=== PATIENT | male | born 1975 | race Caucasian/White ===

== ENCOUNTER 2019-04-14 14:41 | Inpatient (IN) ==
--- NOTE | 2019-04-14 17:15 | History & Physical Report ---
*Admission Date: 04/14/19 *Chief complaint: RLQ pain *History of present illness: Mr. Rose is a relatively healthy 43-year-old male who was seen in the office to [facility] today with complaints of right lower quadrant pain and fever. Upon examination in the office he was felt to have a possible appendicitis. His white blood cell count was elevated at 14.5 and he had ran a fever of over 100 yesterday evening. He was sent down for a CT scan and the CT showed sigmoid diverticulitis with a contained perforation. Radiology felt the tip of the appendix was also distended and the patient could have appendicitis. He was directly admitted for pain control, IV antibiotics, and a surgical consu lt. [facility] History I have reviewed the patient's past medical history: Yes Medical History: Denies:: Diabetes Mellitus Type 2, Hyperlipidemia, Hypertension *Have you ever received a pneumonia vaccine?: No *Have you received a flu vaccine this season?: No Other Surgeries: Yes: Other (Vasectomy) - *Social History Smoking Status: Former smoker Alcohol Intake: never *Travel in the last 8 weeks: None Family Hx:: Cancer, Diabetes, Hypertension, Other (RA, Osteoporosis) Review of Systems - Constitutional Reports chills, Reports fever(s), Reports weakness - Eyes Denies blurry vision, Denies double vision - ENT Denies nasal congestion, Denies sore throat - *Cardiovascular Denies chest pain, Denies shortness of breath - *Respiratory Denies cough, Denies shortness of breath, Denies wheezing - *Gastrointestinal Reports abdominal pain (RLQ), Denies loose stools, Denies nausea, Denies vomiting - *Genitourinary Denies difficulty urinating, Denies painful urination - *Musculoskeletal Denies joint pain, Denies back pain - *Neurologic Denies headache(s), Denies dizziness, Denies weakness Meds Home Medications Medication Instructions Recorded Confirmed Type Multivitamin [Multi-Vitamin Plain] 1 tab PO DAILY 04/14/19 04/28/19 History Potassium 99 mg PO DAILY 04/14/19 04/28/19 History [place]-3/Dha/Epa/Fish Oil [Fish Oil 1 each PO DAILY 04/15/19 04/28/19 History 500 mg Softgel] Amoxicillin/Potassium Clav 500 mg PO TID #30 tab 04/16/19 04/28/19 Rx [Augmentin 500mg tab] peg 3350-electrolytes 236 240 ml PO Q10M #4000 ml 04/28/19 04/28/19 Rx gram-22.74 gram-6.74 gram-5.86 gram solution Allergies Allergy/AdvReac Type Severity Reaction Status Date / Time No Known Allergies Allergy Unverified 04/28/19 10:00 Exam - Constitutional Comments: Does not appear to feel well - *Routine HEENT Exam Head: Present: normocephalic Eye: Present: EOMI, PERRL ENT: Present: mucous membranes dry - *Routine Neck Exam Present: supple. Absent: lymphadenopathy - *Routine Respiratory Exam Present: CTA bilaterally - *Routine Cardiovascular Exam Present: RRR - *Routine Abdominal Exam Present: soft, normoactive bowel sounds, tenderness (RLQ and some suprapubic tenderness), rebound, guarding - *Routine Extremities Exam Absent: cyanosis, clubbing, edema - *Routine Skin Exam Present: pallor. Absent: rash - *Routine Neurological Exam Present: alert, oriented X3 H&P: Result - Impressions CT abd/pelvic 1. Acute sigmoid diverticulitis with stranding of the pericolic fat. There is what appears to represent a small contained perforation along the medial aspect of the sigmoid colon. No abscess or distant free air is evident. 2. Diverticulosis of the descending and sigmoid colon 3. There is mild focal soft tissue thickening at the tip of the appendix. This is of questionable clinical significance and may be related to some mild dilatation of the tip of the appendix or even an adjacent lymph node. Suggest follow-up to confirm stability. Cannot exclude the possibility of appendicitis at the tip of the appendix by CT. Therefore, correlation with clinical parameters are needed. Assessment and Plan (1) Perforation of sigmoid colon due to diverticulitis Status: Acute Category: Medical Code(s): K57.20 - Diverticulitis of large intestine with perforation and abscess without bleeding (2) Leukocytosis Status: Acute Category: Medical Code(s): D72.829 - Elevated white blood cell count, unspecified - Assessment and plan all Dx Assessment and Plan for all problems:: We will start the patient on IV Invanz as well as IV morphine and IV fluids. Will consult surgery for diverticulitis with perforation and a possible appendicitis.
--- NOTE | 2019-04-14 17:48 | Consult Report ---
*Admission Date: 04/14/19 *Reason for consult:: Diverticulitis *History of present illness: This is a 43-year-old gentleman seen in consultation from Dr. Munoz for evaluation regarding diverticulitis with focal/contained perforation. Please see truncated version of HPI from admission H&P forwarded below. Forwarded from admission H&P (truncated): ...relatively healthy 43-year-old male who was seen in the office to [facility] today with complaints of right lower quadrant pain and fever...he was felt to have a possible appendicitis...white blood cell count was...14.5...ran a fever of over 100 yesterday evening...CT showed sigmoid diverticulitis with a contained perforation...tip of the appendix was also distended.... He was directly admitted for pain control, IV antibiotics, and a surgical consult. Currently he states that his pain has essentially been mid lower abdomen/suprapubic. Review of Systems - Constitutional Denies chills - *Cardiovascular Denies chest pain - *Gastrointestinal Reports abdominal pain - *Neurologic Denies headache(s), Denies dizziness, Denies weakness - Psychiatric Denies anxiety - Hematologic/Lymphatic Denies easy bruising [facility] History Medical History: Denies:: Diabetes Mellitus Type 1, Diabetes Mellitus Type 2, Hyperlipidemia, Hypertension *Have you ever received a pneumonia vaccine?: No *Have you received a flu vaccine this season?: No Other Surgeries: Yes: Other (Vasectomy) - *Social History Educational Level: Attended College Smoking Status: Former smoker Smoking End Date: 05/04/2013 Alcohol Intake: never *Occupational Status:: employed Housing: house Household Members: spouse, children *Travel in the last 8 weeks: None Family Hx:: Cancer, Diabetes, Hypertension, Other Meds Home Medications Medication Instructions Recorded Confirmed Type Multivitamin [Multi-Vitamin Plain] 1 tab PO DAILY 04/14/19 04/14/19 History [place]-3 Fatty Acids [Fish Oil] 300 mg PO DAILY 04/14/19 04/14/19 History RX: Potassium 99 mg PO DAILY 04/14/19 04/14/19 History Allergies Allergy/AdvReac Type Severity Reaction Status Date / Time No Known Allergies Allergy Unverified 04/14/19 17:17 Exam Vital signs and Labs for Last 24 Hours: Temp Pulse Resp BP Pulse Ox 98.1 F 114 H 18 168/111 H 97 04/14/19 17:22 04/14/19 17:22 04/14/19 17:22 04/14/19 17:22 04/14/19 17:22 I & O for Last 24 hours: Intake & Output 04/12/19 04/13/19 04/14/19 04/15/19 11:59 11:59 11:59 11:59 Weight 232 lb 8 oz - Constitutional no acute distress - *Routine Respiratory Exam Absent: respiratory distress - *Routine Cardiovascular Exam Present: tachycardia - *Routine Abdominal Exam Present: tenderness. Absent: distended Comments: lower abdomen bilaterally Results - Imaging CT scan - abdomen: report reviewed, image reviewed CT scan - pelvis: report reviewed, image reviewed Assessment and Plan (1) Perforation of sigmoid colon due to diverticulitis Current visit: Yes Status: Acute Category: Medical Code(s): K57.20 - Diverticulitis of large intestine with perforation and abscess without bleeding IV abx as per PCP Serial exams Colonoscopy in near future (likely in ~6-8 weeks) No need for emergent surgical intervention; however, this does represent a somewhat complicated subset of diverticulitis and discussion with regard to possible elective resection will be ongoing (assuming he does not decompensate clinically and require more urgent/emergent intervention). (2) Leukocytosis Current visit: Yes Status: Acute Category: Medical Code(s): D72.829 - Elevated white blood cell count, unspecified
[2019-04-14 17:55] LABS: Albumin/Globulin Ratio 1.1 (1.1-1.8); Anion Gap 14.9 mEq/L (5-15); Bilirubin,Total 1.5 mg/dL (0.2-1.0); Calcium 8.8 mg/dL (8.5-10.1); Globulin 3.8 gm/dl (1.3-3.2); Total Protein,Serum 7.8 gm/dL (6.4-8.2)
[2019-04-14 18:09] LABS: Basophils % 0.1 % (0.1-2.0); Eosinophils # 0.1 K/mm3 (0.0-0.4); Eosinophils % 0.4 % (0.1-12.0); Hematocrit 45.4 % (42.0-52.0); Hemoglobin 15.1 g/dL (14.1-18.0); Lymphocytes # 1.6 K/mm3 (0.7-4.5); Lymphocytes % 11.5 % (10-50); Mean Corpuscular HGB Conc 33.2 g/dL (31.8-35.4); Mean Corpuscular Volume 87.3 fl (80-94); Mean Platelet Volume 7.3 fl (7.4-10.4); Monocytes # 0.8 K/mm3 (0.1-1.0); Monocytes % 5.5 % (1.7-9.3); Neutrophils # 11.3 K/mm3 (1.8-7.8); Neutrophils % 82.5 % (37.0-80.0); Platelet Count 212 K/mm3 (142-424); Red Cell Distribution Width 12.7 % (11.5-17.5); White Blood Count 13.8 K/mm3 (4.8-10.8)
--- NOTE | 2019-04-15 06:38 | Progress Note ---
Subjective Narrative: resting Exam Vital signs and Labs for Last 24 Hours: Temp Pulse Resp BP Pulse Ox 98.3 F 97 H 17 132/92 H 96 04/15/19 04:00 04/15/19 04:00 04/15/19 04:00 04/15/19 04:00 04/15/19 04:00 Laboratory Results - last 24 hr 04/14/19 17:25: WBC 13.8 H, RBC 5.20, Hgb 15.1, Hct 45.4, MCV 87.3, MCH 29.0, MCHC 33.2, RDW 12.7, Plt Count 212, MPV 7.3 L, Neut % (Auto) 82.5 H, Lymph % (Auto) 11.5, [place] % (Auto) 5.5, Eos % (Auto) 0.4, Baso % (Auto) 0.1, Neut # (Auto) 11.3 H, Lymph # (Auto) 1.6, [place] # (Auto) 0.8, Eos # (Auto) 0.1, Baso # (Auto) 0.0 04/14/19 17:25: Sodium 132 L, Potassium 3.9, Chloride 95 L, Carbon Dioxide 26, Anion Gap 14.9, BUN 8, Creatinine 1.04, Estimated Creat Clear 134, Estimated GFR 77, Est GFR ( Amer) 93, Glucose 103, Calcium 8.8, Total Bilirubin 1.5 H, AST 12 L, ALT 27, Alkaline Phosphatase 99, Total Protein 7.8, Albumin 4.0, Globulin 3.8 H, Albumin/Globulin Ratio 1.1 04/14/19 17:50: Lactate 0.8 I & O for Last 24 hours: Intake & Output 04/12/19 04/13/19 04/14/19 04/15/19 11:59 11:59 11:59 11:59 Intake Total 1486 / 1486 Balance 1486 / 1486 Weight 226 lb 4 oz - Constitutional no acute distress - *Routine Respiratory Exam Absent: respiratory distress - *Routine Cardiovascular Exam Present: RRR - *Routine Abdominal Exam Comments: exam deferred (patient currently asleep) Progress Note: A&P (1) Perforation of sigmoid colon due to diverticulitis Status: Acute Assessment and plan: Continue antibiotics Serial abdominal exams Current Visit: Yes (2) Leukocytosis Status: Acute Current Visit: Yes
--- NOTE | 2019-04-15 07:19 | Pharmacy Consult Notes ---
[facility] Pharmacy VTE Monitoring - Patient Demographics Admission date: 04/14/19 Report Date: 04/15/19 Time: 07:18 Allergies/Adverse Reactions: Patient Allergies No Known Allergies Allergy (Unverified 04/14/19 17:17) Height: 1.85 m Weight: 102.625 kg Patient Problems: Current Active Problems Perforation of sigmoid colon due to diverticulitis (Acute) Leukocytosis (Acute) - VTE Risk Labs: VTE Related Lab Results Hgb 15.1 g/dL (14.1-18.0) 04/14/19 17:25 Hct 45.4 % (42.0-52.0) 04/14/19 17:25 Plt Count 212 K/mm3 (142-424) 04/14/19 17:25 BUN 8 mg/dL (7-18) 04/14/19 17:25 Creatinine 1.04 mg/dL (0.70-1.30) 04/14/19 17:25 Estimated Creat Clear 134 mL/min (50-200) 04/14/19 17:25 Was VTE Risk Assessment Performed: Yes VTE Score: 1 VTE Risk Level: Very Low Risk Clinical Trial Participant: No - Prophylaxis VTE Prophylaxis Ordered?: Yes Types of VTE Prophylaxis: TEDS Knee High
--- NOTE | 2019-04-15 08:22 | Progress Note ---
<Liana Palma - Last Filed: 04/15/19 08:19> Internal Medicine - PN: Subj *Date: 04/15/19 *Time: 08:19 Interval history: Patient states he feels a little bit better this morning. He still has some lower abdominal pain. He states he is hungry and would like to try diet. Dr. Matos has seen the patient and plans no surgical intervention at this time. Exam Vital signs and Labs for Last 24 Hours: Temp Pulse Resp BP Pulse Ox 98.2 F 93 H 20 146/89 H 94 L 04/15/19 07:59 04/15/19 07:59 04/15/19 07:59 04/15/19 07:59 04/15/19 07:59 Laboratory Results - last 24 hr 04/14/19 17:25: WBC 13.8 H, RBC 5.20, Hgb 15.1, Hct 45.4, MCV 87.3, MCH 29.0, MCHC 33.2, RDW 12.7, Plt Count 212, MPV 7.3 L, Neut % (Auto) 82.5 H, Lymph % (Auto) 11.5, [place] % (Auto) 5.5, Eos % (Auto) 0.4, Baso % (Auto) 0.1, Neut # (Auto) 11.3 H, Lymph # (Auto) 1.6, [place] # (Auto) 0.8, Eos # (Auto) 0.1, Baso # (Auto) 0.0 04/14/19 17:25: Sodium 132 L, Potassium 3.9, Chloride 95 L, Carbon Dioxide 26, Anion Gap 14.9, BUN 8, Creatinine 1.04, Estimated Creat Clear 134, Estimated GFR 77, Est GFR ( Amer) 93, Glucose 103, Calcium 8.8, Total Bilirubin 1.5 H, AST 12 L, ALT 27, Alkaline Phosphatase 99, Total Protein 7.8, Albumin 4.0, Globulin 3.8 H, Albumin/Globulin Ratio 1.1 04/14/19 17:50: Lactate 0.8 I & O for Last 24 hours: Intake & Output 04/12/19 04/13/19 04/14/19 04/15/19 11:59 11:59 11:59 11:59 Intake Total 1486 / 1486 Balance 1486 / 1486 Weight 226 lb 4 oz - Constitutional no acute distress - *Routine Respiratory Exam Present: CTA bilaterally - *Routine Cardiovascular Exam Present: RRR - *Routine Abdominal Exam Present: soft, normoactive bowel sounds, tenderness (RLQ, LLQ) - *Routine Extremities Exam Absent: cyanosis, clubbing, edema - *Routine Skin Exam Present: warm. Absent: rash - *Routine Neurological Exam Present: alert, oriented X3 Assessment and Plan (1) Perforation of sigmoid colon due to diverticulitis Current visit: Yes Status: Acute Category: Medical Code(s): K57.20 - Diverticulitis of large intestine with perforation and abscess without bleeding (2) Leukocytosis Current visit: Yes Status: Acute Category: Medical Code(s): D72.829 - Elevated white blood cell count, unspecified - Assessment and plan all Dx Assessment and Plan for all problems:: Will discuss ordering a liquid diet with Dr. Munoz and will get labs tomorrow morning. We will continue IV antibiotics. <Sumit Munoz - Last Filed: 04/15/19 13:17> Internal Medicine - PN: Subj *Date: 04/15/19 *Time: 13:16 Exam Vital signs and Labs for Last 24 Hours: Temp Pulse Resp BP Pulse Ox 98.5 F 90 20 136/95 H 96 04/15/19 12:00 04/15/19 12:00 04/15/19 12:00 04/15/19 12:00 04/15/19 12:00 Laboratory Results - last 24 hr 04/14/19 17:25: WBC 13.8 H, RBC 5.20, Hgb 15.1, Hct 45.4, MCV 87.3, MCH 29.0, MCHC 33.2, RDW 12.7, Plt Count 212, MPV 7.3 L, Neut % (Auto) 82.5 H, Lymph % (Auto) 11.5, [place] % (Auto) 5.5, Eos % (Auto) 0.4, Baso % (Auto) 0.1, Neut # (Auto) 11.3 H, Lymph # (Auto) 1.6, [place] # (Auto) 0.8, Eos # (Auto) 0.1, Baso # (Auto) 0.0 04/14/19 17:25: Sodium 132 L, Potassium 3.9, Chloride 95 L, Carbon Dioxide 26, Anion Gap 14.9, BUN 8, Creatinine 1.04, Estimated Creat Clear 134, Estimated GFR 77, Est GFR ( Amer) 93, Glucose 103, Calcium 8.8, Total Bilirubin 1.5 H, AST 12 L, ALT 27, Alkaline Phosphatase 99, Total Protein 7.8, Albumin 4.0, Globulin 3.8 H, Albumin/Globulin Ratio 1.1 04/14/19 17:50: Lactate 0.8 I & O for Last 24 hours: Intake & Output 04/13/19 04/14/19 04/15/19 04/16/19 11:59 11:59 11:59 11:59 Intake Total 1486 / 1486 Balance 1486 / 1486 Weight 226 lb 4 oz Assessment and Plan (1) Perforation of sigmoid colon due to diverticulitis Current visit: Yes Status: Acute Category: Medical Code(s): K57.20 - Diverticulitis of large intestine with perforation and abscess without bleeding (2) Leukocytosis Current visit: Yes Status: Acute Category: Medical Code(s): D72.829 - Elevated white blood cell count, unspecified - Assessment and plan all Dx Assessment and Plan for all problems:: Patient seen and examined this AM. He is more comfortable now. Feels hungry. Has loose BM last night. Will advance to full liquids.
[2019-04-16 06:35] LABS: Albumin Level 3.2 gm/dL (3.4-5.0); Anion Gap 12.7 mEq/L (5-15); Bilirubin,Total 0.7 mg/dL (0.2-1.0); Calcium 8.4 mg/dL (8.5-10.1); Globulin 3.3 gm/dl (1.3-3.2); Total Protein,Serum 6.5 gm/dL (6.4-8.2)
--- NOTE | 2019-04-16 06:54 | Progress Note ---
Subjective Narrative: Mr. Rose is a 43-year-old male admitted to [facility] for acute sigmoid diverticulitis; complicated. Today is hospital day #3. Sigmoid diverticulitis with small contained perforation noted. Admitted for bowel rest and IV antibiotics. Mildly elevated WBC. Today, patient reports feeling better. Flatus and bowel movement are noted. Diet advanced to clear liquids last evening. Tolerated. No new complaints or significant complaints. Exam Vital signs and Labs for Last 24 Hours: Temp Pulse Resp BP Pulse Ox 97.7 F 78 18 130/90 95 04/16/19 04:00 04/16/19 04:00 04/16/19 04:00 04/16/19 04:00 04/16/19 04:00 Laboratory Results - last 24 hr 04/16/19 05:50: Sodium 140, Potassium 4.7 D, Chloride 105, Carbon Dioxide 27, Anion Gap 12.7, BUN 7, Creatinine 0.96, Estimated Creat Clear 142, Estimated GFR 85, Est GFR ( Amer) 102, Glucose 98, Calcium 8.4 L, Total Bilirubin 0.7, AST 10 L, ALT 24, Alkaline Phosphatase 76, Total Protein 6.5, Albumin 3.2 L, Globulin 3.3 H, Albumin/Globulin Ratio 1.0 L I & O for Last 24 hours: Intake & Output 04/13/19 04/14/19 04/15/19 04/16/19 11:59 11:59 11:59 11:59 Intake Total 1486 / 1486 1550 / 1550 Output Total 1600 / 1600 Balance 1486 / 1486 -50 / -50 Weight 102.625 kg 103.079 kg - Constitutional Comments: Resting comfortably. - *Routine Respiratory Exam Comments: Chest clear. - *Routine Abdominal Exam Comments: Soft. Nondistended. Nontender. Progress Note: A&P (1) Perforation of sigmoid colon due to diverticulitis Status: Acute Current Visit: Yes (2) Leukocytosis Status: Acute Current Visit: Yes Assessment and Plan for All Diagnoses:: 1. Sigmoid diverticulitis. Complicated. Small contained perforation with trace pericolonic pneumoperitoneum. Patient has progressed well. Diet has been initiated. Plan at this time is to transition to oral antibiotics; Augmentin. Complete 10 days or oral abx as outpatient. Advance diet to low residue co nsistency. Discharge planning. Patient will need outpatient colonoscopy within [address] images reviewed. Marked sigmoid thickening noted in the area of inflammatory process; neoplastic process needs to be excluded.
--- NOTE | 2019-04-16 07:16 | Progress Note ---
Internal Medicine - PN: Subj *Date: 04/16/19 *Time: 07:20 Interval history: Rested well last night with minimal pain. No nausea. +BM. Tolerating diet. Exam Vital signs and Labs for Last 24 Hours: Temp Pulse Resp BP Pulse Ox 97.7 F 78 18 130/90 95 04/16/19 04:00 04/16/19 04:00 04/16/19 04:00 04/16/19 04:00 04/16/19 04:00 Laboratory Results - last 24 hr 04/16/19 05:50: Sodium 140, Potassium 4.7 D, Chloride 105, Carbon Dioxide 27, Anion Gap 12.7, BUN 7, Creatinine 0.96, Estimated Creat Clear 142, Estimated GFR 85, Est GFR ( Amer) 102, Glucose 98, Calcium 8.4 L, Total Bilirubin 0.7, AST 10 L, ALT 24, Alkaline Phosphatase 76, Total Protein 6.5, Albumin 3.2 L, Globulin 3.3 H, Albumin/Globulin Ratio 1.0 L I & O for Last 24 hours: Intake & Output 04/13/19 04/14/19 04/15/19 04/16/19 11:59 11:59 11:59 11:59 Intake Total 1486 / 1486 1550 / 1550 Output Total 1600 / 1600 Balance 1486 / 1486 -50 / -50 Weight 226 lb 4 oz 227 lb 3.99 oz - Constitutional no acute distress - *Routine Respiratory Exam Present: CTA bilaterally - *Routine Cardiovascular Exam Present: RRR - *Routine Abdominal Exam Present: soft, normoactive bowel sounds. Absent: tenderness, distended Assessment and Plan (1) Perforation of sigmoid colon due to diverticulitis Current visit: Yes Status: Acute Category: Medical Code(s): K57.20 - Diverticulitis of large intestine with perforation and abscess without bleeding (2) Leukocytosis Current visit: Yes Status: Acute Category: Medical Code(s): D72.829 - Elevated white blood cell count, unspecified - Assessment and plan all Dx Assessment and Plan for all problems:: He is stable for discharge on oral antibiotics. Continue soft diet. Remain off work. F/u in 3 days.
[2019-04-16 07:21] LABS: White Blood Count 4.8 K/mm3 (4.8-10.8)
[2019-04-16 07:22] LABS: Basophils % 0.3 % (0.1-2.0); Eosinophils # 0.2 K/mm3 (0.0-0.4); Eosinophils % 3.7 % (0.1-12.0); Hemoglobin 14.5 g/dL (14.1-18.0); Lymphocytes # 1.2 K/mm3 (0.7-4.5); Lymphocytes % 24.5 % (10-50); Mean Corpuscular HGB Conc 33.7 g/dL (31.8-35.4); Mean Corpuscular Volume 86.2 fl (80-94); Mean Platelet Volume 7.2 fl (7.4-10.4); Monocytes # 0.4 K/mm3 (0.1-1.0); Neutrophils % 62.5 % (37.0-80.0); Platelet Count 176 K/mm3 (142-424); Red Blood Count 4.99 M/mm3 (4.60-6.20); Red Cell Distribution Width 13.6 % (11.5-17.5)
--- NOTE | 2019-04-18 14:46 | Discharge Summary ---
General - General Admission date:: 04/14/19 <Sumit Munoz - 04/23/19 08:49> 04/14/19 <Liana Palma - 04/18/19 14:47> Discharge date: 04/16/19 <Liana Palma - 04/18/19 14:47> HPI HPI: Mr. Rose is a relatively healthy 43-year-old male who was seen in the office to [facility] today with complaints of right lower quadrant pain and fever. Upon examination in the office he was felt to have a possible appendicitis. His white blood cell count was elevated at 14.5 and he had ran a fever of over 100 yesterday evening. He was sent down for a CT scan and the CT showed sigmoid diverticulitis with a contained perforation. Radiology felt the tip of the appendix was also distended and the patient could have appendicitis. He was directly admitted for pain control, IV antibiotics, and a surgical consult. <Liana Palma - 04/18/19 14:47> Hospital Course Hospital Course: The patient's abdominal/pelvic CT showed acute sigmoid diverticulitis with a small contained perforation along the medial aspect of the sigmoid colon. There was no abscess or free air evident. There was some mild focal soft tissue thickening at the tip of the appendix as well. The patient was admitted and started on pain control and IV Invanz. Surgery was consulted. He was seen in consultation by Dr. Feltno, who felt he should continue on IV antibiotics and have serial abdominal exams as well as a colonoscopy in 6 to 8 weeks. He did not feel there was a need for emergent surgical intervention, but he did feel the patient may need an elective resection in the future. The patient was started on a liquid diet. He did begin feeling better after a few days. His diet was advanced to a low residue diet and surgery felt he could be discharged home on oral Augmentin. He had minimal pain and no nausea and tolerated his diet well. He was stable to be discharged home on Augmentin and will remain off work until his follow-up in the office in 3 days. <Liana Palma - 04/18/19 14:47> Objective Vital signs: Temp Pulse Resp BP Pulse Ox 97.5 F L 96 H 18 146/100 H 97 04/16/19 08:00 04/16/19 08:00 04/16/19 08:00 04/16/19 08:00 04/16/19 08:00 <Sumit Munoz - 04/23/19 08:49> Temp Pulse Resp BP Pulse Ox 97.5 F L 96 H 18 146/100 H 97 04/16/19 08:00 04/16/19 08:00 04/16/19 08:00 04/16/19 08:00 04/16/19 08:00 <Liana Palma - 04/18/19 14:47> Narrative: - Constitutional no acute distress - *Routine Respiratory Exam Present: CTA bilaterally - *Routine Cardiovascular Exam Present: RRR - *Routine Abdominal Exam Present: soft, normoactive bowel sounds. Absent: tenderness, distended <Liana Palma - 04/18/19 14:47> Results Labs on day of discharge: Preliminary micro results at discharge 04/14/19 17:50 Blood Culture - Preliminary Blood NO GROWTH AFTER 48 HOURS 04/14/19 17:25 Blood Culture - Preliminary Blood NO GROWTH AFTER 48 HOURS <Liana Palma - 04/18/19 14:47> DS: Diagnosis - Discharge Diagnosis (1) Perforation of sigmoid colon due to diverticulitis Status: Acute (2) Leukocytosis Status: Acute <Liana Palma - 04/18/19 14:43> (1) Perforation of sigmoid colon due to diverticulitis Status: Acute (2) Leukocytosis Status: Acute <Sumit Munoz - 04/23/19 08:49> Discharge Plan - Patient Discharge Instructions ACTIVITY: Continue current activity <Liana Palma - 04/18/19 14:47> DIET: other (soft diet) <Liana Palma - 04/18/19 14:47> Patient Instructions: DI for Diverticulitis, DI for Colon Perforation <Sumit Munoz - 04/23/19 08:49> Forms: <Sumit Munoz - 04/23/19 08:49> - Follow up Plan Follow up with: Sumit Munoz MD [Staff Physician] - 04/19/19 Gianni Felton MD [Staff Physician] - 1 week <Sumit Munoz - 04/23/19 08:49> Disposition: Home, Self-Care <Sumit Munoz - 04/23/19 08:49> Home Medications: Home Medications Medication Instructions Recorded Confirmed Type Multivitamin [Multi-Vitamin Plain] 1 tab PO DAILY 04/14/19 04/14/19 History Potassium 99 mg PO DAILY 04/14/19 04/14/19 History [place]-3/Dha/Epa/Fish Oil [Fish Oil 1 each PO DAILY 04/15/19 04/15/19 History 500 mg Softgel] Amoxicillin/Potassium Clav 500 mg PO TID #30 tab 04/16/19 Rx [Augmentin 500mg tab] <Sumit Munoz - 04/23/19 08:49> Prescriptions/Medication Reconciliation: New Amoxicillin/Potassium Clav [Augmentin 500mg tab] 500 mg PO TID #30 tab Continued Multivitamin [Multi-Vitamin Plain] 1 tab PO DAILY Potassium 99 mg PO DAILY [place]/Dha/Epa/Fish Oil [Fish Oil 500 mg Softgel] 1 each PO DAILY <Sumit Munoz - 04/23/19 08:49> - Problem Reconciliation Problems Reviewed?: Yes <Sumit Munoz - 04/23/19 08:49> Yes <Liana Palma - 04/18/19 14:47> - Additional Information Additional Information: Patient seen and examined. Concur with plan for discharge as outlined above. <Sumit Munoz - 04/23/19 08:49>
== END 2019-04-16 09:45 | disposition home or self-care (01) | DRG 392 ==
LOC: RAD 14:41 → 2ND 14:41 → OBSVTOIN 17:05
PROVIDERS: ADMIT Family Medicine; ATTEND Family Medicine
DX: K57.20 Diverticulitis of large intestine with perforation and abscess without bleeding
CPT/HCPCS: 36415; 74177; 80053; 83605; 85025; 87040; J1335; Q9967

== ENCOUNTER → 2019-05-06 07:13 | Outpatient (CLI) | payer OTHER, SELFPAY ==
[2019-05-06 09:15] LABS: Alanine Aminotransferase 39 U/L (12-78); Albumin/Globulin Ratio 1.5 (1.1-1.8); Alkaline Phosphatase 87 U/L (46-116); Anion Gap 11.7 mEq/L (5-15); Aspartate Amino Transferase 13 U/L (15-37); Bilirubin,Total 0.4 mg/dL (0.2-1.0); Blood Urea Nitrogen 11 mg/dL (7-18); Calcium 8.7 mg/dL (8.5-10.1); Carbon Dioxide 28 mmol/L (21.0-32.0); Chloride 104 mmol/L (98-107); Chol/HDL Ratio 3.4 (1-3.5); Cholesterol 153 mg/dL (140-200); Creatinine,Serum 0.99 mg/dL (0.70-1.30); Estimated Glomerular Filt Rate 82 ml/min (>60); GFR (African American) 99 ML/MIN (>60); Globulin 2.7 gm/dl (1.3-3.2); Glucose 106 mg/dL (74-106); HDL Cholesterol 45 mg/dL (27-67); LDL Cholesterol 91 mg/dL (0-130); Potassium 4.7 mmoL/L (3.5-5.1); Prostate Specific Ag Screen 0.8 ng/mL (0.0-4.0); Sodium 139 mmol/L (136-145); Total Protein,Serum 6.7 gm/dL (6.4-8.2); Triglycerides 83 mg/dL (30-200); VLDL Cholesterol 17 mg/dL (0-40)
== END ==
PROVIDERS: Visit Provider Physician Assistant
DX: I10 Essential (primary) hypertension (principal); Z12.5 Encounter for screening for malignant neoplasm of prostate; Z13.29 Encounter for screening for other suspected endocrine disorder; Z13.220 Encounter for screening for lipoid disorders
CPT/HCPCS: 36415; 80053; 80061; 84443; G0103

== ENCOUNTER → 2019-06-10 09:28 | Outpatient (CLI) | payer OTHER, SELFPAY ==
--- NOTE | 2019-06-10 09:37 | US_ITS ---
PROCEDURE: US TESTICULAR CLINICAL INDICATION: RT TESTICULAR PAIN Right testicular pain and swelling COMPARISON: No exams were available for comparison FINDINGS: The right testicle measures 4 x 2.3 cm. Blood flow is present. No testicular mass is apparent. There is a 2 x 1.3 cm epididymal cyst/spermatocele along the superior aspect of the right testicle.. Along the inferior aspect of the right testicle posteriorly there is an heterogeneous area of echogenicity which measures 1.9 x 1 cm. There is some increased blood flow in this region. This may represent an inflamed epididymis. The left testicle has an unremarkable appearance at 4 x 2.5 cm. Blood flow is present. There is a small epididymal cyst on the left at 1 cm in the head of the epididymis. IMPRESSION: Suspect right-sided epididymitis. Heterogeneous echogenicity noted along the posterior inferior aspect of the right testicle more prominent than on the left side with increased blood flow. Recommend follow-up following treatment to confirm resolution. Bilateral spermatocele/epididymal cysts Dictated by: Ramesh Benson MD 06/10/2019 10:28 Electronically signed by Ramesh Benson MD in [place] 06/10/2019 10:28
== END ==
PROVIDERS: PCP Family Medicine; Visit Provider Physician Assistant
DX: N50.811 Right testicular pain (principal)
CPT/HCPCS: 76870

== ENCOUNTER → 2020-07-31 14:06 | Outpatient (CLI) | payer OTHER, SELFPAY ==
[2020-07-31 16:38] LABS: Coronavirus 19 IgG Antibody Negative (Negative); Coronavirus 19 IgM Antibody Negative (Negative)
== END ==
PROVIDERS: Visit Provider Surgery
DX: Z01.812 Encounter for preprocedural laboratory examination (principal); Z20.822 Contact with and (suspected) exposure to COVID-19; Z12.11 Encounter for screening for malignant neoplasm of colon; Z86.010 Personal history of colon polyps
CPT/HCPCS: 36415; 86328

== ENCOUNTER 2020-08-02 09:17 | Day surgery (SDC) | payer OTHER, SELFPAY ==
[2020-07-30 13:07] VITALS: BMI 31.4
[2020-08-02 09:43] VITALS: BP 148/93; PULSE 91; RESP 18; TEMP 36.3; O2SAT 99
[2020-08-02 11:03] VITALS: O2SAT 99
--- NOTE | 2020-08-02 11:38 | HMH.SCOPE ---
- Procedure: Date: 08/02/20 Patient Date of :: 1975 Procedure Performed:: Colonoscopy with biopsy Indications:: History of large complex adenomatous polyps including hepatic flexure polyp and polyp at 20 cm. Polyp at 20 cm excised and tattooed at time of prior colonoscopy. Performing Provider:: Gianni Felton MD Referring Provider:: . Sedation:: Monitored anesthesia care Procedure:: After informed consent was obtained the patient was taken to the endoscopy suite. Sedation ensued after the patient was transferred to the left lateral decubitus position. Pulse, blood pressure, and oxygen saturation were monitored throughout the procedure. Digital rectal exam revealed no significant abnormality. The colonoscope was placed in position. The entire colon was evaluated. The colonoscope was carefully removed and the patient was transferred to recovery in stable condition. Please see findings and specimens below for detail. Findings:: Bowel preparation fair to moderate Fairly significant spasticity Patchy inflammatory changes around 25 cm Tattoo site at 20 cm appeared normal Specimens:: Biopsy of focal colitis at 25 cm (just proximal to tattoo) Recommendations:: Timing of repeat colonoscopy is pending pathology but will likely be between 2-3 years secondary to history of large complex polyps and ongoing mild to moderate limitations in visualization. Complications:: No immediate Estimated blood obtained (mL): 1
[2020-08-02 11:41] VITALS: BP 94/49; PULSE 106; RESP 18; TEMP 36.2; O2SAT 94
[2020-08-02 11:51] VITALS: BP 98/64; PULSE 89; RESP 18; O2SAT 94
[2020-08-02 12:01] VITALS: BP 110/70; PULSE 98; RESP 18; O2SAT 100
[2020-08-02 12:20] VITALS: BP 105/73; PULSE 69; RESP 18; O2SAT 100
--- NOTE | 2020-08-02 13:54 | P.PN_ITS ---
[facility] Anesthesia Checklist - Patient Identification Patient Identification: Arm Band - Structural Data Admitted From: Home Planned Operative Procedure/s: Colonscopy Consent for Planned Operative Procedure(s) Verified: Yes Verified Documents: Surgical Consent - NPO Status Verified Time NPO: 00:00 - Additional verifications Anesthesia Reactions: No Hx Blood Transfusions: No Blood Transfusion Reaction: No - Airway Assessment C-Spine Mobility Assessed: Yes TMJ Mobility Assessed: Yes Dentition: Good Dentition - Neurological Assessment Level of Consciousness: Awake, Alert - Anesthesia Plan Anesthesia Risk discussed: Yes Anesthesia Plan: Verified ASA Class: II Anesthesia Type: MAC [facility] History Medical History: Denies:: Cancer, Diabetes Mellitus Type 1, Diabetes Mellitus Type 2, Hyperlipidemia, Hypertension, Internal Pacemaker, MRSA, Seizures *Have you ever received a pneumonia vaccine?: No *Have you received a flu vaccine this season?: Yes Other Medical History: Denies: Blood Transfusion Reaction Anesthesia experience/problems:: None Other Surgeries: Yes: Other. No: Pacemaker Amputation: No Fractures: No - *Social History Last grade of school completed: Advanced degree Smoking Status: Former smoker Alcohol Intake: never Substance Use Type: other *Occupational Status:: employed Housing: house Household Members: spouse, family *Travel in the last 8 weeks: None Family Hx:: No significant family history
== END 2020-08-02 12:25 | disposition home or self-care (01) ==
LOC: OUTP 09:19
PROVIDERS: PCP Family Medicine; Visit Provider Surgery
PROC: 0DJD8ZZ Inspection of Lower Intestinal Tract, Via Natural or Artificial Opening Endoscopic (ICD-10-PCS; CPT 45380; principal; 2020-08-02 10:30)
DX: Z12.11 Encounter for screening for malignant neoplasm of colon (principal); K58.9 Irritable bowel syndrome, unspecified; K63.9 Disease of intestine, unspecified; Z86.010 Personal history of colon polyps; Z79.899 Other long term (current) drug therapy
CPT/HCPCS: 45380; J1610

== ENCOUNTER → 2020-09-29 11:46 | Outpatient (CLI) | payer OTHER, SELFPAY ==
--- NOTE | 2020-09-29 12:14 | XR_ITS ---
PROCEDURE INFORMATION: Exam: XR Cervical Spine Exam date and time: 09/29/2020 12:14 PM Age: 45 years old Clinical indication: Neck pain TECHNIQUE: Imaging protocol: XR of the cervical spine. Views: 4 or 5 views. COMPARISON: No relevant prior studies available. FINDINGS: Bones/joints: Degenerative changes are seen throughout the cervical spine particularly in the facet joints and uncovertebral joints from the C3 through C6 level where there are small osteophytes causing neural foraminal stenosis bilaterally. No acute fracture or malalignment is seen. Soft tissues: Unremarkable. IMPRESSION: Degenerative changes are seen throughout the cervical spine particularly in the facet joints and uncovertebral joints from the C3 through C6 level where there are small osteophytes causing neural foraminal stenosis bilaterally. No acute fracture or malalignment is seen.
== END ==
PROVIDERS: PCP Family Medicine; Referring Provider Family Medicine; Visit Provider Family Medicine
DX: M53.82 Other specified dorsopathies, cervical region (principal)
CPT/HCPCS: 72050

== ENCOUNTER → 2020-11-30 13:35 | Outpatient (CLI) | payer OTHER, SELFPAY ==
--- NOTE | 2020-11-30 13:44 | MR_ITS ---
PROCEDURE: MR CERVICAL SPINE WO CON CLINICAL INDICATION: DISORDER OF NECK, DDD Neck pain that shoots into head. Headaches and symptoms x2-3yrs. Prior x-ray 09/29/20. COMPARISON: CR XR CERVICAL SPINE 5V from 09/29/2020 TECHNIQUE: Standard multiplanar multiecho sequences are performed without contrast. 3-D MIP and myelographic images are also rendered and reviewed FINDINGS: There is slight reversal of the cervical lordosis. There is fusion of the C1 and C2 vertebral bodies with a prominent dens which extends to the base of the skull and is oblique posteriorly toward the brainstem. There is some contour deformity anteriorly at the brainstem however the prominent dens does not appear to be directly compressing the brainstem. There is some minimal increased T2 signal of the brainstem anteriorly. C2-C3: Mild bulging disc with canal narrowing at 10 mm. There is mild right and moderate left foraminal narrowing from uncovertebral and facet hypertrophic change. C3-C4: Moderate bilateral foraminal narrowing from facet and uncovertebral hypertrophy. C4-C5: 3 mm anterolisthesis of C4 with moderate left and mild right foraminal narrowing. C5-C6: 3 mm anterolisthesis of C5 with bulging disc and minimal central disc protrusion versus prominent posterior longitudinal ligament. There is contour deformity of the anterior aspect of the cord from the small disc protrusion/PLL prominence with canal stenosis at 9 mm. C6-C7: Minimal bulging disc which is eccentric toward the right with mild right lateral recess narrowing. No extruded herniated disc apparent. C7-T1: Unremarkable. IMPRESSION: 1. 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 Slight increased T2 signal is present at the brainstem anteriorly which could be due to some minimal gliotic change. MRI of the brain may provide further evaluation. 2. Hoc cervical spondylosis as described above. Please see above for detailed description at each level Dictated by: Ramesh Benson MD 12/01/2020 09:09 Ramesh Benson MD in [place] 12/01/2020 09:09
== END ==
PROVIDERS: PCP Family Medicine; Visit Provider Family Medicine
DX: M53.82 Other specified dorsopathies, cervical region (principal); M50.30 Other cervical disc degeneration, unspecified cervical region; M47.812 Spondylosis without myelopathy or radiculopathy, cervical region; M25.78 Osteophyte, vertebrae; M48.02 Spinal stenosis, cervical region
CPT/HCPCS: 72141; 76376

== ENCOUNTER → 2020-12-27 14:48 | Outpatient (POV) | payer OTHER, SELFPAY ==
[2020-12-27 15:18] VITALS: BP 138/104; PULSE 102; RESP 18; O2SAT 98; BMI 32.3
--- NOTE | 2020-12-27 16:18 | HMH.PMCON ---
Assessment and Plan (1) Degenerative joint disease of cervical spine Status: Chronic Category: Medical Code(s): M47.812 - Spondylosis without myelopathy or radiculopathy, cervical region (2) Cervical radiculopathy Status: Chronic Category: Medical Code(s): M54.12 - Radiculopathy, cervical region (3) Facet arthropathy, cervical Status: Chronic Category: Medical Code(s): M47.812 - Spondylosis without myelopathy or radiculopathy, cervical region (4) Spinal stenosis, cervical region Status: Chronic Category: Medical Code(s): M48.02 - Spinal stenosis, cervical region (5) Nonintractable headache Status: Chronic Category: Medical Code(s): R51.9 - Headache, unspecified - Assessment and plan all Dx Assessment and Plan for all problems:: Patient I did review his MRI today. He is having worsening headaches that are daily and constant in nature. He is having neck pain that is not associated with any specific movement. He is not having any radicular pain into his shoulders or bilateral upper extremities. Per the patient MRI report, fusion of C1-C2 (no past surgical history) with prominent dens projecting superiorly and posteriorly contour deformity of the brainstem, possible minimal gliotic change. Patient I did discuss these results. We also discussed his disc bulging along with facet hypertrophy and foraminal stenosis. Patient would like to try a cervical epidural steroid injection at C5-C6 area. We also discussed a neurology consult for his continued headaches. Patient may benefit from an MRI of the brain to provide further evaluation per his MRI report of his cervical spine. We will proceed with the cervical epidural steroid injection at C5-C6, and Dr. Short for neurology will determine if the patient does need an MRI of his brain. He is not on any anticoagulation therapy. We will follow-up with him after his injection for reevaluation of symptoms. Risks and benefits of the procedure have been explained to the patient. Patient would like to proceed with the procedure. Possible side effects of corticosteroids have been discussed with the patient. Patient has been instructed to contact the clinic with any concerns before the next appointment. Dr. Garrett has reviewed this note and agrees with this plan of care. This note was dictated using voice recognition software and make contain errors or omissions. HPI - Data of Consult Patient: new to practice Consult date: 12/27/20 Requesting Physician: Gianna Moscoso APRN Primary Care Provider: Orion Short MD - Consult Narrative Reason for consult: Headaches, neck pain History of present illness: Mr. Rose is a 45 year old male who was referred to us by Dr. Short for chronic headaches and neck pain. Patient says that he has had neck pain to his right side of neck at approximately C5-C6/C6-C7 area for 3 to 4 years. The pain has progressively worsened, radiating into the top of his head causing him to have daily headaches. Patient says that he previously had intermittent headaches, however, now has headaches every day, much of the day. The patient denies nausea, vomiting, vertigo, or dizziness. He denies any tinnitus. Patient denies any balance issues or frequent falls. He denies blurred vision. He denies floaters or double vision. Patient says his only complaints are neck pain and headaches daily. He does have an MRI from 12/01/2019 one of his cervical spine. Patient has been doing home exercising as well as meloxicam. Patient is concerned with taking meloxicam daily due to side effects. He says it does give him some relief. He does not get relief from ice or heat therapies. Patient says applying pressure to his neck does give him relief of the pain at his neck area. He says the pain does not radiate behind his ear. Movement of his neck does not change the intensity or location of pain. Patient does not have light sensitivity. He does rate
== END ==
PROVIDERS: PCP Family Medicine; Visit Provider Clinical Nurse Specialist Family Health
DX: M47.812 Spondylosis without myelopathy or radiculopathy, cervical region (principal); M54.12 Radiculopathy, cervical region; M48.02 Spinal stenosis, cervical region; R51.9 Headache, unspecified
CPT/HCPCS: 99202; G0463

== ENCOUNTER 2021-01-18 10:06 | Day surgery (SDC) | payer OTHER, SELFPAY ==
[2021-01-18 10:12] VITALS: BP 137/98; PULSE 73; RESP 18; TEMP 36.2; O2SAT 99; BMI 32.1
[2021-01-18 10:29] VITALS: BP 146/98; PULSE 79; RESP 18; O2SAT 98
[2021-01-18 10:31] VITALS: PULSE 73; RESP 18; O2SAT 99
--- NOTE | 2021-01-18 10:42 | P.PCN_ITS ---
- Procedure Date: 01/18/21 Time: 10:42 Anesthesiologist:: Gio Garrett MD Complications:: None Pre-procedure Diagnosis:: Bilateral neck pain myofascial in origin with chronic headaches Post-procedure Diagnosis:: Same Indications for Procedure:: Patient is a pleasant 45-year-old white male who we are treating for chronic headaches and neck pain. This is progressively worsened rating to the top of the head with daily headaches. He does have an MRI of the brain scheduled per previous cervical MRI there is a fusion of C1 and C2 with prominent dens projecting superiorly and posteriorly contoured with deformity of the brainstem we will have this evaluated by his brain MRI and Dr. De La Cruz. In the meantime today we will do trigger point injections to bilateral cervical paraspinous musc les to see if this helps with his pain symptoms. Procedure Details:: Trigger point injections x8 to bilateral cervical paraspinous muscles Informed consent was obtained risk and benefits of the procedure were explained to the patient. Patient was taken to the procedure room. Neck was prepped using ChloraPrep. Trigger points were palpated and marked. Each of these tr igger points were injected with bupivacaine 0.25% 3 mL and Depo-Medrol 10 mg. There are total of 8 trigger points injected over bilateral cervical paraspinous muscles. We used a total of 80 mg Depo-Medrol for cervical paraspinous trigger points bilaterally. Patient tolerated the procedure well with no complications. Plan and Disposition:: We will follow-up with this patient in 2 weeks after his brain MRI. We will try to expedite his appointment with Dr. De La Cruz.
[2021-01-18 10:50] VITALS: BP 140/96; PULSE 78; RESP 20; O2SAT 98
[2021-01-18 11:08] LABS: Alanine Aminotransferase 27 U/L (12-78); Albumin Level 4.4 g/dl (3.5-5.0); Albumin/Globulin Ratio 1.8 (1.1-1.8); Alkaline Phosphatase 79 U/L (38-126); Anion Gap 12.4 mEq/L (5-15); Aspartate Amino Transferase 22 U/L (17-59); Bilirubin,Total 0.5 mg/dl (0.2-1.3); Blood Urea Nitrogen 13 mg/dl (9-20); Calcium 9.2 mg/dl (8.4-10.2); Carbon Dioxide 29 mmol/L (22.0-30.0); Chloride 102 mmol/L (98-107); Chol/HDL Ratio 3.5 (1-3.5); Cholesterol 153 mg/dl (140-200); Creatinine Clearance Estimated 158 mL/min (50-200); Estimated Glomerular Filt Rate 90 ml/min (>60); GFR (African American) 109 ML/MIN (>60); Globulin 2.4 g/dL (1.3-3.2); Glucose 101 mg/dl (74-100); HDL Cholesterol 44 mg/dl (40-60); Potassium 5.4 mmoL/L (3.5-5.1); Sodium 138 mmol/L (136-145); Total Protein,Serum 6.8 g/dl (6.3-8.2); Triglycerides 115 mg/dl (30-150); VLDL Cholesterol 23 mg/dL (0-40)
[2021-01-18 11:19] LABS: Direct LDL Cholesterol 86.59 mg/dL (100-129)
[2021-01-18 11:40] LABS: Prostate Specific Ag Screen 0.8 ng/ml (0.0-4.0); Thyroid Stimulating Hormone 1.19 uIU/mL (0.465-4.68)
== END 2021-01-18 10:50 | disposition home or self-care (01) ==
LOC: SC.PAINP 10:09
PROVIDERS: Physician Assistant; PCP Family Medicine; Visit Provider Anesthesiology
DX: M79.18 Myalgia, other site (principal); R51.9 Headache, unspecified; I10 Essential (primary) hypertension; Z87.19 Personal history of other diseases of the digestive system; Z90.49 Acquired absence of other specified parts of digestive tract; Z79.899 Other long term (current) drug therapy
CPT/HCPCS: 20552; 36415; 80053; 80061; 84443; G0103; J1040

== ENCOUNTER → 2021-01-23 12:51 | Outpatient (CLI) | payer OTHER, SELFPAY ==
--- NOTE | 2021-01-23 12:53 | MR_ITS ---
PROCEDURE: MR HEAD/BRAIN WO/W CON CLINICAL INDICATION: HEADACHES,ABNORMAL CSPINE MRI COMPARISON: CR XR CERVICAL SPINE 5V from 09/29/2020 MR MR CERVICAL SPINE WO CON from 11/30/2020 TECHNIQUE: Routine multiplanar multi echo sequences are performed without and with gadolinium enhancement. FINDINGS: No midline shift, mass effect, intracranial hemorrhage, or hydrocephalus is evident. No evidence of acute infarction. Once again there is noted a prominent odontoid process with fusion of C1 and C2. The prominent a Don toys process projects superiorly and slightly posterior with some minimal flattening of the brainstem at this region. There was question of increased T2 signal within the brainstem at this area however this is not confirmed on the dedicated brain images. The brainstem is flattened however and somewhat rotated toward the left anteriorly. There is a prominent right vertebral artery which is tortuous causing some flattening of the inferior aspect of the aidan and the anterior aspect of the aidan on the left. The cerebellopontine angles have an unremarkable appearance. The pituitary, optic chiasm, and corpus callosum have an unremarkable appearance. No enhancing lesions. There are few small T2 white matter hyperintensities which are nonspecific No mastoid effusion or sinus air-fluid level. IMPRESSION: 1. 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 Dolichoectasia of the right vertebral artery causing some minimal flattening of the aidan inferiorly and on the left. Dictated by: Ramesh Benson MD 01/24/2021 08:43 Ramesh Benson MD in [place] 01/24/2021 08:43
== END ==
PROVIDERS: PCP Family Medicine; Visit Provider Anesthesiology
DX: R51.9 Headache, unspecified (principal); R93.0 Abnormal findings on diagnostic imaging of skull and head, not elsewhere classified
CPT/HCPCS: 70553; A9576

== ENCOUNTER → 2021-02-07 11:16 | Outpatient (POV) | payer OTHER, SELFPAY ==
[2021-02-07 11:45] VITALS: BP 141/90; PULSE 89; RESP 18; O2SAT 98; BMI 32.7
--- NOTE | 2021-02-07 12:40 | HMH.PAINSOAP ---
[facility] Pain Management SOAP Note Subjective:: Patient is a 45-year-old white male who presents today for follow-up after trigger point injections for chronic headaches. The patient does have an MRI of cervical spine and brain. He was scheduled for an appointment with neurology in [facility]. We did attempt to get an appointment with Dr. De La Cruz last visit, but says he was not contacted from her clinic. The patient did undergo trigger point injections and says that he got significant relief following the injections. He does rate his pain a 2 out of 10 today. He did undergo trigger point injections to the cervical paraspinous muscles. Review of Systems General: No recent weight changes, no fever, no sleep disturbances Respiratory: No cough, no shortness of air, no recurring pulmonary infections Cardiovascular/peripheral vascular: No chest pain, no palpitations, no edema, no shortness of breath Gastrointestinal: No new onset incontinence, normal bowel movements reported Genitourinary: No new onset incontinence Psychiatric: [Normal mood/affect] Neurological: Intermittent headaches Assessment:: Physical exam General: Alert and oriented x3, no acute distress, pleasant and cooperative, [on room air] Lungs: Respirations even and unlabored, symmetrical chest expansion Eyes: PERRL Musculoskeletal: Flexion and extension of spine nonguarded, normal gait noted Neurological: Speech clear, no gross sensory deficit Plan:: Patient is a pleasant 45-year-old white male who presents today for follow-up after trigger point injections. He got significant relief with pain at a 2 out of 10 at this time. We will contact Dr. De La Cruz's office to get the patient in as soon as possible for evaluation of abnormal MRI. Per MRI report brain?Fusion of C1 and C2 with prominent odontoid process which projects superiorly and posteriorly causing some minimal flattening of the brainstem. Dolichoectasia of the right vertebral artery causing some minimal flattening of the aidan inferiorly and on the left. We will not perform any further injective therapy until patient is seen and evaluated by neurology. We will follow-up with him after his neurology appointment. [facility] History I have reviewed the patient's past medical history: Yes Medical History: Reports:: Hypertension Denies:: Cancer, Diabetes Mellitus Type 1, Diabetes Mellitus Type 2, Hyperlipidemia, Internal Pacemaker, MRSA, Seizures *Have you ever received a pneumonia vaccine?: No *Have you received a flu vaccine this season?: No Other Medical History: Denies: Blood Transfusion Reaction Other Surgeries: Yes: Colonoscopy, Colon Resection, Other. No: Pacemaker Amputation: No Fractures: No - *Social History Smoking Status: Former smoker Alcohol Intake: never Substance Use Type: other *Occupational Status:: unemployed Housing: house Household Members: spouse *Travel in the last 8 weeks: None Family Hx:: No significant family history
== END ==
PROVIDERS: PCP Family Medicine; Visit Provider Clinical Nurse Specialist Family Health
DX: R51.9 Headache, unspecified (principal)
CPT/HCPCS: 99212; G0463

== ENCOUNTER → 2021-02-23 10:37 | Outpatient (CLI) | payer OTHER, SELFPAY ==
[2021-02-23 11:14] LABS: Basophils % 0.5 % (0.1-2.0); Eosinophils # 0.1 K/mm3 (0.0-0.4); Eosinophils % 1.3 % (0.1-12.0); Hematocrit 45.5 % (42.0-52.0); Hemoglobin 15.1 g/dL (14.1-18.0); Lymphocytes # 1.1 K/mm3 (0.7-4.5); Lymphocytes % 16.1 % (10-50); Mean Corpuscular HGB Conc 33.2 g/dL (31.8-35.4); Mean Corpuscular Hemoglobin 30.2 pg (27.0-31.2); Mean Corpuscular Volume 90.9 fl (80-94); Mean Platelet Volume 7.8 fl (7.4-10.4); Monocytes # 0.7 K/mm3 (0.1-1.0); Neutrophils # 4.7 K/mm3 (1.8-7.8); Neutrophils % 72.1 % (37.0-80.0); Platelet Count 174 K/mm3 (142-424); Red Cell Distribution Width 13.3 % (11.5-17.5); White Blood Count 6.6 K/mm3 (4.8-10.8)
[2021-02-23 11:39] LABS: Strep Scrn Group A (Rapid) Positive (Negative)
== END ==
PROVIDERS: PCP Family Medicine; Visit Provider Family Medicine
DX: Z20.822 Contact with and (suspected) exposure to COVID-19 (principal); U07.1 COVID-19
CPT/HCPCS: 36415; 85025; 87430; C9803; U0003; U0005

== ENCOUNTER → 2021-02-26 07:57 | Outpatient (CLI) | payer OTHER, SELFPAY ==
[2021-02-26] VITALS (7 sets, daily range): BP systolic 127–145; BP diastolic 92–97; PULSE 95–111; RESP 17; TEMP 36.8; O2SAT 94–99
== END ==
LOC: COVID.OUT 07:58 → INF 08:39
PROVIDERS: PCP Family Medicine; Visit Provider Family Medicine
DX: U07.1 COVID-19 (principal); Z23 Encounter for immunization
CPT/HCPCS: 96365

== ENCOUNTER 2021-04-16 15:40 | Outpatient (RCR) | payer OTHER, SELFPAY | END 2021-04-16 15:45 | disposition home or self-care (01) | LOC: PT 15:40 | PROVIDERS: Visit Provider Neurological Surgery | DX: M54.2 Cervicalgia (principal) | CPT/HCPCS: 97163 ==

== ENCOUNTER 2022-12-16 09:12 | Day surgery (SDC) | payer BC, SELFPAY ==
[2022-12-12 09:30] VITALS: BMI 31.4
[2022-12-16 09:25] VITALS: BP 143/81; PULSE 86; RESP 18; TEMP 36.7; O2SAT 96
--- NOTE | 2022-12-16 10:10 | P.PNANES_ITS ---
[facility] Disclaimer: The information contained in this section may have been updated after the patient was seen, as this information can be updated by other users. Medical History Hypertension Surgical History History of vasectomy Family History Other Family history of diabetes mellitus type II Family history of hypertension Lung cancer Social History Smoking Status: Former smoker alcohol intake: never substance use type: denies use and other current occupational status: employed Travel in the last 8 weeks: None household members: spouse and children housing: house current occupation: eletrician current occupational exposures/hazards: No caffeine: Yes [facility] Anesthesia Checklist Patient Identification Patient Identification: Verbal (Name & ) Structural Data Admitted From: Home Planned Operative Procedure/s: colonoscopy Consent for Planned Operative Procedure(s) Verified: Yes Additional verifications Anesthesia Reactions: No Hx Blood Transfusions: No Blood Transfusion Reaction: No Airway Assessment Mallampati Score:: Class I C-Spine Mobility Assessed: Yes TMJ Mobility Assessed: Yes Dentition: Partials Neurological Assessment Level of Consciousness: Awake, Alert and Appropriate Anesthesia Plan Anesthesia Risk discussed: Yes Anesthesia Plan: Verified ASA Class: II Anesthesia Type: MAC
[2022-12-16 10:40] VITALS: BP 96/66; PULSE 89; RESP 15; TEMP 36.1; O2SAT 92
--- NOTE | 2022-12-16 10:41 | P.PCN_ITS ---
Procedure: Date: 12/16/22 Patient Date of :: 1975 Procedure Performed:: Colonoscopy with polypectomy Indications:: History of colon polyps Note: Most recent colonoscopy in August 2020 was somewhat complicated by spasticity. Patchy inflammatory changes around 25 cm noted. Tattoo at 20 cm appeared normal. Prior colonoscopy in June 2019 was significant for moderate bowel preparation, fairly significant spasticity, diverticulosis, multiple complex polyps, and tattoo placement at 20 cm secondary to size/nature of polyp. Of note, the patient also has a history of complicated diverticulitis with contained perforation. He has chosen to forego elective resection. Performing Provider:: Gianni Felton MD Referring Provider:: . Sedation:: Monitored anesthesia care Procedure:: After informed consent was obtained the patient was taken to the endoscopy suite. Sedation ensued after the patient was transferred to the left lateral decubitus position. Pulse, blood pressure, and oxygen saturation were monitored throughout the procedure. Digital rectal exam revealed no significant abnormality. The colonoscope was placed in position. The entire colon was evaluated. The colonoscope was carefully removed and the patient was transferred to recovery in stable condition. Please see findings and specimens below for detail. Findings:: Bowel preparation moderate Fairly severe lack of relaxation Unchanged sigmoid diverticulosis Small polyp adjacent (not within) to tattoo Specimens:: Small polyp adjacent to tattoo at 20 cm (cold biopsy forceps) Recommendations:: Timing of repeat colonoscopy is pending pathology but likely be around 3 years s econdary to history of significant polyps, limited bowel preparation, and lack of relaxation. Complications:: No immediate Estimated blood obtained (mL): 1 Colonoscopy Component Colonoscopy Component Was a colonoscopy performed during today's procedure?: Yes Recommended follow up colonoscopy of at least 10 years?: No If no, follow up colonoscopy recommended in ___ years?: 3 Reason for not recommending >/= 10 yr follow-up interval?: (See above)
[2022-12-16 10:50] VITALS: BP 102/68; PULSE 78; RESP 15; O2SAT 93
[2022-12-16 11:00] VITALS: BP 102/71; PULSE 77; RESP 17; O2SAT 94
[2022-12-16 11:10] VITALS: BP 103/82; PULSE 76; RESP 17; O2SAT 97
== END 2022-12-16 11:10 | disposition home or self-care (01) ==
PROVIDERS: PCP Family Medicine; Visit Provider Surgery
PROC: 0DJD8ZZ Inspection of Lower Intestinal Tract, Via Natural or Artificial Opening Endoscopic (ICD-10-PCS; CPT 45380; principal; 2022-12-16 10:30)
DX: Z12.11 Encounter for screening for malignant neoplasm of colon (principal); Z86.010 Personal history of colon polyps; K57.30 Diverticulosis of large intestine without perforation or abscess without bleeding; K63.5 Polyp of colon
CPT/HCPCS: 45380; J2704

== ENCOUNTER 2023-07-17 07:12 | Outpatient (CLI) | payer BC, SELFPAY ==
[2023-07-17 07:53] LABS: Basophils % 0.6 % (0.1-2.0); Eosinophils # 0.1 K/mm3 (0.0-0.4); Eosinophils % 2.2 % (0.1-12.0); Hematocrit 45.7 % (42.0-52.0); Lymphocytes # 1.5 K/mm3 (0.7-4.5); Lymphocytes % 29.6 % (10-50); Mean Corpuscular HGB Conc 32.9 g/dL (31.8-35.4); Mean Corpuscular Hemoglobin 30.2 pg (27.0-31.2); Mean Corpuscular Volume 91.9 fl (80-94); Mean Platelet Volume 7.8 fl (7.4-10.4); Monocytes # 0.3 K/mm3 (0.1-1.0); Monocytes % 6.4 % (1.7-9.3); Neutrophils # 3.1 K/mm3 (1.8-7.8); Neutrophils % 61.1 % (37.0-80.0); Platelet Count 167 K/mm3 (142-424); Red Blood Count 4.97 M/mm3 (4.60-6.20); Red Cell Distribution Width 13.2 % (11.5-17.5)
[2023-07-17 08:09] LABS: Alanine Aminotransferase 30 U/L (12-78); Albumin Level 4.4 g/dl (3.5-5.0); Albumin/Globulin Ratio 2.1 (1.1-1.8); Alkaline Phosphatase 89 U/L (38-126); Anion Gap 9.5 mEq/L (5-15); Aspartate Amino Transferase 25 U/L (17-59); Bilirubin,Total 0.7 mg/dl (0.2-1.3); Blood Urea Nitrogen 15 mg/dl (9-20); Calcium 9.1 mg/dl (8.4-10.2); Carbon Dioxide 29 mmol/L (22.0-30.0); Chloride 104 mmol/L (98-107); Chol/HDL Ratio 4.1 (1-3.5); Cholesterol 154 mg/dl (140-200); Estimated Glomerular Filt Rate 90 ml/min (>60); GFR (African American) 109 ML/MIN (>60); Globulin 2.1 g/dL (1.3-3.2); Glucose 104 mg/dl (74-100); HDL Cholesterol 38 mg/dl (40-60); Potassium 4.5 mmoL/L (3.5-5.1); Sodium 138 mmol/L (136-145); Total Protein,Serum 6.5 g/dl (6.3-8.2); Triglycerides 86 mg/dl (30-150); VLDL Cholesterol 17 mg/dL (0-40)
[2023-07-17 08:20] LABS: Direct LDL Cholesterol 81.03 mg/dL (100-129)
[2023-07-17 08:39] LABS: Prostate Specific Ag Screen 0.8 ng/ml (0.0-4.0)
== END 2023-07-17 23:59 ==
LOC: LAB 07:14
PROVIDERS: PCP Family Medicine; Visit Provider Family Medicine
DX: I10 Essential (primary) hypertension (principal); Z12.5 Encounter for screening for malignant neoplasm of prostate; Z13.220 Encounter for screening for lipoid disorders; Z87.891 Personal history of nicotine dependence
CPT/HCPCS: 36415; 80053; 80061; 85025; G0103